=== PATIENT | female | born 1980 | race Caucasian/White ===

== ENCOUNTER → 2023-12-28 15:08 | Outpatient (REF) | payer BC, SELFPAY | LOC: HWWDC 15:08 | PROVIDERS: ATTENDING PHYSICIAN Physician Assistant Medical; FAMILY PHYSICIAN Internal Medicine; REFERRING PHYSICIAN Obstetrics & Gynecology | DX: Z12.31 Encounter for screening mammogram for malignant neoplasm of breast (principal) | CPT/HCPCS: 77063; 77067 ==

== ENCOUNTER → 2024-01-11 09:12 | Outpatient (REF) | payer BC, SELFPAY | LOC: HWRAD 09:12 | PROVIDERS: ATTENDING PHYSICIAN Obstetrics & Gynecology; FAMILY PHYSICIAN Internal Medicine | DX: N92.0 Excessive and frequent menstruation with regular cycle (principal) | CPT/HCPCS: 76830; 76856 ==

== ENCOUNTER → 2025-02-27 14:51 | Outpatient (REF) | payer OTHER, SELFPAY | LOC: HWWDC 14:51 | PROVIDERS: ATTENDING PHYSICIAN Obstetrics & Gynecology | DX: Z12.31 Encounter for screening mammogram for malignant neoplasm of breast (principal) | CPT/HCPCS: 77063; 77067 ==